=== PATIENT | female | born 2000 | race Caucasian/White ===

== ENCOUNTER 2022-08-14 14:48 | Outpatient (CLI) | payer OTHER, SELFPAY ==
[2022-08-18 14:03] LABS: Kit Draw Collected
== END 2022-08-14 14:49 | disposition home or self-care (01) ==
LOC: ANHGOSHLAB 14:50
PROVIDERS: PCP Internal Medicine; Visit Provider Clinical Nurse Specialist
DX: D64.9 Anemia, unspecified (principal); R53.83 Other fatigue; Z20.828 Contact with and (suspected) exposure to other viral communicable diseases
CPT/HCPCS: 36415

== ENCOUNTER 2024-12-24 19:01 | Emergency (ER) | payer OTHER, SELFPAY ==
--- NOTE | ~2024-12-24 | XR_ITS ---
XR chest 1V portable Ordering provider: Alicia Mcnair MD History: 24 years Female with . sob . Comparison: None. FINDINGS: MEDIASTINUM: The cardiac silhouette is not enlarged. LUNGS: No infiltrates, effusions or pneumothorax. OTHER: No free air under the diaphragm. IMPRESSION: No acute cardiopulmonary pathology. Reviewed, dictated and finalized at location A.
--- OUTSIDE RECORDS SUMMARY | 2024-12-24 19:03 | XMS_ITS | Encounter Summary ---
Author Organization [facility] Healthcare Address [address] [place] [id number] Care Team Providers Care Oracle Application Architect Name Role Phone Dominic Riggs DO Primary Care Provider [phone]- [phone] Reason for Visit * Reason Comments Urinary Symptom Burning and pain dur ing urination, back pain on lower right side, chills, body aches. Symptoms started . Otc advil Encounter Details Date Type Department Care Team (Late st Contact Info) Description 12/24/2024 5:45 PM CDT Office Visit [facility] [place] [address] [place] [id number] Julia Hoffman, BEAU [address] [facility] [place] [address] Pyelonephritis (Primary Dx) Social History Tobacco Use Types Packs/Day Years Used Date Smoking Tobacco: Never Smokeless Tobacco: Never Alcohol Use Standard Drinks/Week Comments Never 0 (1 standard drink = 0.6 oz pur e alcohol) AUDIT-C Answer Date Recorded Q1: How often do you have a drink containing alc ohol? Never 01/16/2020 Average Number of Drinks Not on file 020 Frequency of Binge Drinking Not on file 01/01 Exercise Vital Sign Answer Date Recorde d On average, how many days pe r week do you engage in moderate to strenuous exercise (like a brisk walk)? 0 days 01/16/2020 On average, how many minutes do you engage in exercise at this level? 0 min 01/16/2020 Comments Unknown Sex and Gender Information Value Date Recorded Sex Assigned at Not on file Legal Sex Female 1:[address] Gender Identity Not on file Sexual Orientation Not on file documented as of this encounter Last Filed Vital Signs Vital Sign Reading Time Taken Comments Blood Pressure 100/60 12/24/2024 5:50 PM CDT Pulse 120 12/24/2024 5:50 PM CDT Temperature 38.3 C (100.9 F) 12/24/2024 5:50 PM CDT Respiratory Rate 16 12/24/2024 5:50 PM CDT Oxygen Saturation 98% 12/24/2024 5:50 PM CDT Inhaled Oxygen Concentration - - Weight 59 kg (130 lb) 12/24/2024 5:50 PM CDT Height 154.9 cm (5' 1 ) 12/24/2024 5:50 PM CDT Body Mass Index 24.56 12/24/2024 5:50 PM CDT documented in this encounter Patient Instructions * Patient Instructions* Julia Hoffman NP - 12/24/2024 5:45 PM CDT Go to [facility] documented in this encounter Plan of Treatment Scheduled Orders Name Type Priority Associated Diagnoses Orde r Schedule Urine culture Urine, clean voided Microbiology Routine Pyelonephritis Expected: 12/24/2024, Expires: 12/24/2025 documented as of this encounter Procedures Procedure Name Priority Date/Time Associated Diagnosis Comments POCT HCG, URINE Routine 12/24/2024 6:03 PM CDT Pyelonephritis POCT URINALYSIS DIPSTICK Routine 12/24/2024 5:56 PM CDT Pyelonephritis documented in this encounter Results * POCT hCG, urine (12/24/2024 6:03 PM CDT) HCG, ur, POC Negative Negative Lot Number [id number] QC Backgroud Clear Acceptable QC Control Line Acceptable Urine 12/24/2024 6:03 PM CDT [facility] POINT OF CARE TEST ORDERABLES Fi nal Result * (ABNORMAL) POCT urinalysis dipstick (12/24/2024 5:56 PM CDT) Color, Urine, POC Dark Yellow Clarity, ur, POC Cloudy(A) Clear Glucose, ur, POC Negative Negative Bilirubin, ur, POC Negative Negative Ketones, ur, POC 80.(A) Negative Specific [place], POC 1.020 1.003 - 1.030 Blood, ur, POC Moderate(A) Negative pH, ur, POC 6.5 5.0 - 8.0 Protein, ur, POC 300.(A) Negative Urobilinogen, urine, POC 0.2 0.2 - 1.0 mg/dL Nitrite, ur, POC Positive(A) Negative Leukocytes, ur, POC Small(A) Negative Lot Number [id number] Urine 12/24/2024 5:56 PM CDT [facility] POINT OF CARE TEST ORDERABLES Fi nal Result documented in this encounter Visit Diagnoses Diagnosis Pyelonephritis- Primary Unspecified pyelonephritis documented in this encounter Administered Medications Inactive Administered Medications - up to 3 most recent administrations Medication Order MAR Action Action Date Dose Rate Site acetaminophen (TYLENOL) tablet 975 mg 975 mg (rounded from 1,000 mg), oral, Once, On 12/24/24 at 1845, For 1 doseIndications:Pyelonephritis Given 12/24/2024 6:13 PM CDT 975 mg documented in this encounter Orders Medications Ordered That Good ht Not Have Been Administered Count Last Ordered Date First Ordered Date acetaminophen (TYLENOL) tablet 975 mg 1 documented in this encounter Care Teams Oracle Application Architect Relationship Specialty Start Date End Date Dominic Riggs DO [facility] [address] [place] [address] [place] [id number] PCP - General Internal Medicine 12/24/24 documented as of this encounter
--- OUTSIDE RECORDS SUMMARY | 2024-12-24 19:03 | XMS_ITS | Clinical Summary ---
Author Organization [facility] ospital Address [address] [place] [address] Care Team Providers Care Scale Clerk Name Role Phone Dominic Riggs DO Primary Care Provider [phone]- [phone] Allergies No known active allergies Medications etonogestreL-et hinyl estradioL (NuvaRing) 0.12-0.015 mg/24 hr vaginal ringIndications :Encounter for initial management of nuvaring Insert vaginally and leave in place for 3 consecutive weeks, then remove for 1 week. 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 The bandage contact lenses were removed from each eye. 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 Went over post op week and instructions and expectations for healing. Child to call immediately if worsening pain, clouding, swelling, loss of bandage contact lens or loss of vision. 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 No evidence of infection. 8.4 BCTL exchanged for 8.8. Staining for epi defect with fluorescein did not reveal any staining with 8.[address] Tight fit. Assessment & Plan (12/23/2018 1:55 PM CDT): Child has hyperopic astigmatism of a significant amount. The options were discussed at length and I went through treatment and shelter prognosis regarding her visual system. Encounters Date Type Department Care Team Description 12/24/2024 5:45 PM CDT Office Visit [facility] [place] [address] [place] [id number] Julia Hoffman, BEAU Pyelonephritis (Primary Dx) from Last 3 Months Immunizations Immunization Administration Dates Next Due DTaP 5 Pertussis 10/17/2005, 2,02/25/2001,12/23,2000 HPV, Quadrivalent 09/26/2015, 5,05/18/2014,05/12 Hep A, Pediatric 02/17/2008,10/17/2005 Hep B, Adolescent or Pediatric 05/27/2001,2000,2000 Hib (PRP-T) 02/18/2002, 1,2000,10/20 IPV 10/17/2005, 2,2000,10/20 Influenza, Quadrivalent, Spl it, Preservative Free, Intramuscular 06/12/2017 MMR 10/17/2005,11/19/2001 Meningococcal Conjugate (Menveo) 03/02/2012 Meningococcal MCV4P (Menactra) 04/17/2017 Pneumococcal Conjugate PCV 13 11/19/2001 ,02/25/2001,2000,10/20 Tdap 03/02/2012 Varicella 02/16/2003,08/31/2001 Surgical History Surgery Date Site/Laterality Comments TONSILLECTOMY 06/18/2017 Incision and Drainage Peritonsillar Abscess Medical History Medical History Date Comments Hyperopic astigmatism Corneal degeneration 10/04/2018 Family History Relation Name Status Comments Father Alive Mother Alive Social History Tobacco Use Types Packs/Day Years [...] on file 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 Gender Identity Not on file Sexual Orientation Not on file Obstetrics History Para Term AB IAB SAB Ectopic Multiple Livin g Live Births 1 1 Date Outcome GA Total Labor Labor/2nd/3rd Weight Sex Type Anes PTL Saloni A1 A5 Name Clin 2020 AB 8w0d Last Filed Vital Signs Vital Sign Reading [...] Mass Index 24.56 12/24/2024 5:50 PM CDT Plan of Treatment Health Maintenance Due Date Last Done Comments Cervical Cancer Screening 2000 Depression Screening 2000 Hepatitis C Screening 2000 Regular Well Visit/Exam 18-64 2018 Chlamydia and Gonorrhea (GC/ CT) Screening 01/15/2021 01/16/2020 DTaP/Tdap/Td Vaccine (7 - Td or Tdap) 03/02/2022 03/02/2012, 10/17/2005, 02/18/2002, Additional history exists Influenza Vaccine (Season Ended) 2025 06/12/20 17 Hepatitis B Screening Completed 05/27/2001 , 2000, 2000 Pneumococcal vaccine <65 Completed 002, 02/25/2001, 2000, Additional history exists Varicella Vaccines Completed 02/16/2003, 08/31/2001 HPV Vaccines Completed 09/26/2015, 01/01, 05/18/2014, Additional history exists Procedures Procedure Name Priority Date/Time Associated Diagnosis Comments POCT HCG, URINE Routine 12/24/2024 6:03 PM CDT Pyelonephritis POCT URINALYSIS DIPSTICK Routine 12/24/2024 5:56 PM CDT Pyelonephritis N. GONORRHOEAE/C. TRACHOMATIS AMPLIFICATION TEST Routine 01/16/2020 2:26 PM CDT Screening for STDs (sexually transmitted diseases) from Last 3 Months or Most Recently Relevant to Health Maintenance Results * POCT hCG, urine (12/24/2024 6:03 PM CDT) HCG, ur, POC Negative Negative Lot Number [id number] QC Backgroud Clear Acceptable QC Control Line Acceptable Urine 12/24/2024 6:03 PM CDT Julia Acunaen POINT OF CARE TEST ORDERABLES Fi nal Result * (ABNORMAL) POCT urinalysis dipstick (12/24/2024 5:56 PM CDT) Color, Urine, POC Dark Yellow Clarity, ur, POC Cloudy(A) Clear Glucose, ur, POC Negative Negative Bilirubin, ur, POC Negative Negative Ketones, ur, POC 80.(A) Negative Specific [place], POC 1.020 1.003 - 1.030 Blood, ur, POC Moderate(A) Negative pH, ur, POC 6.5 5.0 - 8.0 Protein, ur, POC 300.(A) Negative Urobilinogen, urine, POC 0.2 0.2 - 1.0 mg/dL Nitrite, ur, POC Positive(A) Negative Leukocytes, ur, POC Small(A) Negative Lot Number [id number] Urine 12/24/2024 5:56 PM CDT Result [facility] Julia Hoffman NP POINT OF CARE TEST ORDERABLES Fi nal Result * N. gonorrhoeae/C. trachomatis amplification test Urine (01/16/2020 2:26 PM CDT) Pathologist [facility] C. trachomatis RNA NOT DETECTED NOT DETECTED [facility] N. gonorrhoeae RNA NOT DETECTED NOT DETECTED [facility] Comment [facility] Comment: The analytical performance characteristics of this assay, when used to test SurePath(TM) specimens have been determined by [employer]. The modifications have not been cleared or approved by the FDA. This assay has been validated pursuant to the CLIA regulations and is used for clinical purposes. For additional information, please refer to https://education.[employer]/faq/DPO747 (This link is being provided for information/ educational purposes only.) Urine 01/16/2020 2:26 PM CDT 01/17/2020 5:18 AM CDT Result [facility] Faith Escamilla TOP [employer]TER LAB MICROBIOLOGY - [facility] RAL ORDERABLES Final Result [facility] [id number] [id number] from Last 3 Months or Most Recently Relevant to Health Maintenance Insurance AET SIGNATURE [facility] AETNA SIGNATURE [facility] CMR Advance Directives For more information, please contact: [phone] Documents on File Type Date Recorded Patient Seat Nailer Expl anation ADVANCE DIRECTIVE 01/18/2019 10:08 AM Care Teams Scale Clerk Relationship Specialty Start Date End Date Dominic Riggs DO [address] [facility] [facility] [place] [address] PCP - General Internal Medicine 12/24/24
--- OUTSIDE RECORDS SUMMARY | 2024-12-24 19:03 | XMS_ITS | Referral Summary ---
Author Organization [facility] ospital Address [address] [place] [address] Care Team Providers Care New Patient Escort Name Role Phone Dominic Riggs DO Primary Care Provider +1- [phone] Encounters Date Type Department Care Team Description 12/24/2024 5:45 PM CDT Office Visit [facility] [place] [address] [place] [address] Julia Hoffman, BEAU Pyelonephritis (Primary Dx) from Last 3 Months Allergies No known active allergies Medications etonogestreL-et [...] (12/29/2018): Added automatically from request for surgery [id number] Assessment & Plan (01/24/2019 12:48 PM CDT): [...] length and I went through treatment and fdc prognosis regarding her visual system. Immunizations Immunization Administration Dates Next Due DTaP 5 Pertussis 10/17/2005, 2,02/25/2001,12/23,2000 HPV, Quadrivalent 09/26/2015, 5,05/18/2014,05/12 Hep A, Pediatric 02/17/2008,10/17/2005 Hep B, Adolescent or Pediatric 05/27/2001,2000,2000 Hib (PRP-T) 02/18/2002, 1,2000,10/20 IPV 10/17/2005, 2,2000,10/20 Influenza, Quadrivalent, Spl it, Preservative Free, Intramuscular 06/12/2017 MMR 10/17/2005,11/19/2001 Meningococcal Conjugate (Menveo) 03/02/2012 Meningococcal MCV4P (Menactra) 04/17/2017 Pneumococcal Conjugate PCV 13 11/19/2001 ,02/25/2001,2000,10/20 Tdap 03/02/2012 Varicella 02/16/2003,08/31/2001 Social History Tobacco Use Types Packs/Day Years [...] on file 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 Gender Identity Not on file Sexual Orientation Not on file Last Filed Vital Signs Vital Sign Reading [...] 12/24/2024 5:50 PM CDT Plan of Treatment Not on file Procedures Procedure Name Priority Date/Time Associated Diagnosis [...] Line Acceptable Urine 12/24/2024 6:03 PM CDT [facility] POINT OF CARE TEST ORDERABLES Fi nal Result * (ABNORMAL) POCT urinalysis dipstick (12/24/2024 5:56 PM CDT) Pathologist [facility] Color, Urine, POC Dark Yellow Clarity, ur, POC Cloudy(A) Clear Glucose, ur, POC Negative Negative Bilirubin, ur, POC Negative Negative Ketones, ur, POC 80.(A) Negative Specific [place], POC 1.020 1.003 - 1.030 Blood, ur, POC Moderate(A) Negative pH, ur, POC 6.5 5.0 - 8.0 Protein, ur, POC 300.(A) Negative Urobilinogen, urine, POC 0.2 0.2 - 1.0 mg/dL Nitrite, ur, POC Positive(A) Negative Leukocytes, ur, POC Small(A) Negative Lot Number [id number] Urine 12/24/2024 5:56 PM CDT Julia [facility] POINT OF CARE TEST ORDERABLES Fi nal Result * N. gonorrhoeae/C. trachomatis amplification test Urine (01/16/2020 2:26 PM CDT) C. trachomatis RNA NOT DETECTED NOT DETECTED [facility] N. gonorrhoeae RNA NOT DETECTED NOT DETECTED [facility] Comment [facility] Comment: The analytical performance characteristics of this assay, when used to test SurePath(TM) specimens have been determined by [employer]. The modifications have not been cleared or approved by the FDA. This assay has been validated pursuant to the CLIA regulations and is used for clinical purposes. For additional information, please refer to https://education.[employer]/faq/KFL668 (This link is being provided for information/ educational purposes only.) Urine 01/16/2020 2:26 PM CDT 01/17/2020 5:18 AM CDT Faith Escamilla NP LAB MICROBIOLOGY - [facility] ORDERABLES Final Result [facility] [id number] [facility] [place] [address] from Last 3 Months or Most Recently Relevant to Health Maintenance Insurance AETNA SIGNATURE AETNA SIGNATURE Advance Directives For more information, please contact: [phone] Documents on File Type Date Recorded Patient Clinic Office Coordinator Expl anation ADVANCE DIRECTIVE 01/18/2019 10:08 AM Care Teams New Patient Escort Relationship Specialty Start Date End Date Dominic Riggs DO [address] [facility] [address] [address] PCP - General Internal Medicine 12/24/24
[2024-12-24 19:06] VITALS: BP 101/70; PULSE 133; RESP 18; TEMP 37.3; O2SAT 100
--- NOTE | 2024-12-24 21:03 | ECG_ITS ---
Test Date: 2024-12-24 21:35:08 Measurements Intervals [place] Rate: 111 P: 42 [place]: 127 QRS: 55 QRSD: 82 T: 47 QT: 322 QTc: 439 Interpretive Statements SINUS TACHYCARDIA ABNORMAL RHYTHM ECG No previous ECG available for comparison Electronically Signed On 12-25-2024 10:08:52 CDT by Celestino Deshpande M.D.
--- NOTE | 2024-12-24 21:03 | ED_ITS ---
HPI - Recheck/Abnormal Lab/Rx General Chief Complaint: Recheck/Abnormal Lab/Rx Stated Complaint: kidney infection Time Seen by Provider: 12/24/24 20:52 Source: patient and other (Boyfriend) Mode of arrival: ambulatory Limitations: no limitations History of Present Illness HPI narrative: Patient presents with low back/right flank pain beginning since . She presented to [facility] urgent care today and was advised to present to the emergency department for possible pyelonephritis. THey reportedly took a sample of urine but unclear result and none listed in discharge instructions. She denies any history of urinary tract infection or pyelonephritis. She has had dysuria, urgency and frequency. She does not know if she has had hematuria. Her last menstrual period started this week and is typically 4-5 days but has been next 7 days at this point. She has felt nauseated but not vomiting. She has had subjective fevers as well as close sweats. No history of kidney stones although her mother and brother have had them. She states she was at her brother's graduation democrat today and progressively felt worse developing a headache and feeling off balance with brain fog. She feels like her breathing has been have urine quicker. No abdominal pain. No previous abdominal surgeries. She is not on control. Her last bowel movement was today and she states it is scant but attributes that to decreased p.o. intake due to no appetite. No blood in bowel movement. No lower extremity edema. Has not been coughing but no hemoptysis. Related Data Allergies Allergy/AdvReac Type Severity Reaction Status Date / Time No Known Allergies Allergy Unknown Verified 08/14/22 14:14 [facility] Surgical History Surgical History of [facility] 2019 History of tonsillectomy 2018 Family History Family History Grandparent Breast cancer paternal and maternal grandmother Diabetes mellitus maternal grandfather Mother Kidney stone Sibling Kidney stone Social History Social History Smoking status: Never smoker Alcohol intake: current Drinks per week: 1 Substance use: current Substance use type: marijuana Lack of Transportation: No Lack of Food: Never True Current Housing: I Have Housing Concerned About Future Housing: No Difficulty Paying Gas/Electric Bills: No Difficulty Paying for Meds: No Currently Unemployed: No Education: High School Diploma/GED Difficulty w/ Childcare or Family Care: No Living arrangements: other Additional living arrangements comments: single Occupation/Education: occupation 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 HEAD: Normocephalic, atraumatic. EYES: Non injected, non icteric ENT: Nares clear, no rhinorrhea or epistaxis. Gross auditory acuity intact. Generally moist although borderline tacky mucous membranes. NECK: Supple. No meningismus. CHEST: Speaking in full sentences. No respiratory distress. HEART:Tachycardic rate and rhythm at left radial pulse. . ABDOMEN: Soft, nondistended. No rigidity or guarding. Not peritoneal BACK/: R CVA tenderness, no L CVA tenderness. EXTREMITIES: Normal range of motion. No lower extremity edema. SKIN: Warm, dry, no rash. NEURO: No focal deficits. Alert and oriented. Answering questions. Following commands. Normal speech without aphasia or dysarthria. PSYCH: Normal mood and affect. Course Vital Signs Vital signs: Vital Signs Temperature 99.1 F 12/24/24 19:06 Pulse Rate 133 H 12/24/24 19:06 Respiratory Rate 18 12/24/24 19:06 Blood Pressure 101/70 12/24/24 19:06 Pulse Oximetry 100 12/24/24 19:06 Oxygen Delivery Room Air 12/24/24 19:06 Temperature 99.1 F 12/24/24 19:06 Pulse Rate 117 H 12/25/24 01:37 Respiratory Rate 20 12/25/24 01:37 Blood Pressure 108/64 12/25/24 01:37 Pulse Oximetry 100 12/25/24 01:37 Oxygen Delivery Room Air 12/24/24 19:06 MDM - Recheck/Abnormal Lab/Rx MDM Narrative Medical decision making narrative: Patient presents with concern for kidney infection. She was sent from a local urgent care for this. In the emergency department she is afebrile vital signs notable for significant tachycardia. 1 L fluid bolus ordered as is an EKG. She has a leukocytosis. Urinalysis does look markedly infected. Because there are moderate squamous cells, it was not automatically reflex to culture. I did order this lab and call the costume technician to process it. Patient has a previous urine culture from 2021 but it showed no growth. Will give 1 time dose of ceftriaxone. Hyperbilirubinemia; direct and indirect ordered. Ddx indirect hyperbilirubinemia (which is predominant) Over production of bilirubin (hemolytic anemia), reduced uptake (cirrhosis or congestive hepatopathy), impaired conjugation, biliary obstruction, hereditary disease (Gilbert syndrome, Maged-Jayson syndrome, Crigler-Ervin syndrome), medication side effect (allopurinol, anabolic steroids, antibiotics, antimalarials, etc.). She otherwise does not appear jaundiced. test negative. Patient's tachycardia is improving after IV fluids however still elevated. Will obtain D-dimer as well as TSH, the former because she had endorsed this of breath/heaviness with breathing. Dimer mildly elevated. However, YEARS Algorithm : No Clinical signs of DVT: No Hemoptysis: No PE is most likely diagnosis: No D-dimer >1000ng/mL: No Result: PE Excluded. Will not pursue this further Thyroid normal. Patient's heart rate does not normalize. At times her heart rate has improved to the low 110s. This might be due to body habitus but also likely infection is contributing. However, she reports feeling much better and is nontoxic appearing. Otherwise stable for and ready for discharge and this is reasonable. Has tolerated PO. Had discussed the importance of taking the entire course of her antibiotics. She had been given for DM and was discharged with the same. Also prescribed medications for symptom management including [id number] prescriptions for analgesics and ondansetron for nausea vomiting. Given strict emergency department return precautions. Differential Diagnosis Differential diagnosis: Likely other (UTI/pyelonephritis, constipation, kidney stone; musculoskeletal) Lab Data Attestation: I reviewed the patient's lab results. 12/24/24 21:41 12/24/24 21:41 Labs: Lab Results 12/24/24 12/24/24 Range/Units 21:41 22:09 WBC 13.4 H (4.5-10.0) K/mm3 RBC 4.47 (4.2-5.4) M/mm3 Hgb 13.8 (12.0-15.0) g/dL Hct 41.9 (37.0-47.0) % MCV 93.7 (80-100) fl MCH 30.9 (26-34) pg MCHC 32.9 (32-36) g/dl RDW 12.0 (11.5-14.5) % Plt Count 183 (150-375) k/mm3 MPV 10.7 H (7.4-10.4) fl Immature Gran % (Auto) 0.4 (0-0.5) % Neut % (Auto) 83.8 H (45.5-73.1) % Lymph % (Auto) 7.7 L (18.3-44.2) % [place] % (Auto) 7.8 (2.6-8.5) % Eos % (Auto) 0.1 (0-4.4) % Baso % (Auto) 0.2 (0.2-1.2) % Lymph # (Auto) 1.03 (0.9-3.2) K/mm3 [place] # (Auto) 1.1 H (0.1-0.6) K/mm3 Eos # (Auto) 0.0 (0-0.3) K/mm3 Baso # (Auto) 0.0 (0.0-0.1) K/mm3 Abs Immat Gran (auto) 0.05 H (0.00-0.031) K/mm3 Absolute Neuts (auto) 11.2 H (1.3-6.7) K/mm3 Absolute Nucleated RBC 0.000 (0.0-0.012) K/mm3 Nucleated RBC % 0.0 (0.0-0.2) % D-Dimer 0.88 H (<0.48) ug/mL Sodium 138 (137-145) mmol/L Potassium 3.7 (3.4-5.0) mmol/L Chloride 104 (98-107) mmol/L Carbon Dioxide 20 L (22-30) mmol/L Anion Gap 14 H (4-12) mmol/L BUN 14 (7-17) mg/dL Creatinine 0.85 (0.7-1.0) mg/dL Estim Creat Clear Calc 67 ml/min Estimated GFR > 60 (59 - ) Glucose 80 (65-110) mg/dL Calcium 9.6 (8.4-10.2) mg/dL Total Bilirubin 2.4 H (0.2-1.3) mg/dL Direct Bilirubin 0.0 (0-0.3) mg/dL Indirect Bilirubin 2.2 H (0-1.1) mg/dL AST 26 (14-36) U/L ALT 15 (6-35) U/L Alkaline Phosphatase 81 (38-126) U/L Total Protein 9.0 H (6.3-8.2) g/dL Albumin 4.9 (3.5-5.1) g/dL TSH 0.652 (0.465-4.680) uIU/mL Urine Color Yellow (Yellow) Urine Appearance Cloudy H (Clear) Urine pH 6.0 (5.0-9.0) Ur Specific [place] 1.020 (1.001-1.035) Urine Protein 2+ H (Negative) mg/dL Urine Glucose (UA) Negative (Negative) mg/dL Urine Ketones 4+ H (Negative) mg/dL Ur Blood (Man) 2+ H (Negative) Urine Nitrate Positive H (Negative) Urine Bilirubin Negative (Negative) Urine Urobilinogen 1.0 (<2.0) mg/dL Add Ur Microanalysis Reviewed Leukocyte Esterase Rfl 3+ H (Negative) CHEPE/UL Urine RBC 6-10 H (0-2) /hpf Urine WBC >100 H (0-3) /hpf Ur Squamous Epith Cells Moderate (Few) /hpf Urine Bacteria 4+ H /hpf Urine Casts 3-5 POC Urine HCG, Qual Negative (Negative) Imaging Data Radiologist's impression: Impressions Chest X-Ray 12/24/24 22:10 IMPRESSION: No acute cardiopulmonary pathology. ECG Data EKG #1: Attestation: I personally reviewed and interpreted this ECG as follows: ECG completion date: 12/24/24 ECG completion time: 21:35 Interpretation: Sinus tachycardia at a rate of 101 beats per minute. NM interval 127. QRS 82. QT/QTC 322/388. Good R-wave progression across the precordial leads. No T-wave inversion. Normal axis. Discharge Plan Discharge Clinical Impression: Dysuria, Right flank pain, Leukocytosis, Pyelonephritis of right kidney Patient Disposition: Home Condition: Stable Instructions: Antibiotic Form, Kidney Infection (ED), Leukocytosis (ED), Dysuria (ED), Flank Pain (ED) Additional Instructions: You have a urinary tract infection that appears to ascended to your kidney and this is known as a kidney infection/pyelonephritis. You received your 1st dose of antibiotic as IV in the emergency department with the rest of the course prescribed. Take the entire course. Pyridium/phenazopyridine can help with the pain you are experiencing from a urinary tract infection. It can discolor your urine and tears (turn them orange). Do not wear contact lenses while taking this medication. Acetaminophen/Tylenol (maximum 4000 mg per day) is safe to take with NSAIDs (ibuprofen/Motrin) for pain relief. You can use the oral disintegrating tablets of Zofran/ondansetron for nausea and vomiting. Follow-up with primary care physician. There is lower suspicion for a kidney stone however this or other causes of symptoms are also possible so do not hesitate to return to the emergency department with any new, worsening, unmanaged symptoms such as intractable nausea/vomiting, concern for dehydration, passing out/nearly fainting, fever greater than 100.4? F, intractable pain, etc. Patient Language: Occitan Prescriptions: New phenazopyridine [Pyridium] 100 mg tablet 100 mg PO TID PRN (Reason: pain) Qty: 5 0RF cephalexin 500 mg capsule 500 mg PO Q8H 12 Days Qty: 36 0RF acetaminophen 500 mg capsule 1,000 mg PO Q6H PRN (Reason: pain) Qty: 30 0RF ibuprofen 600 mg tablet 600 mg PO TID PRN (Reason: pain) Qty: 30 0RF ondansetron 4 mg tablet,disintegrating 4 mg PO Q8H PRN (Reason: nausea and vomiting) Qty: 7 0RF Follow-up/Referrals: Dominic Riggs DO [Primary Care Provider] - Stand Alone Forms: Work/School Release IP Time of Disposition: 01:31
--- OUTSIDE RECORDS SUMMARY | 2024-12-24 21:07 | XMS_ITS | Encounter Summary ---
Author Organization [facility] Healthcare Address [address] [place] [address] Care Team Providers Care Director Of Product Marketing Name Role Phone Dominic Riggs DO Primary Care Provider [phone]- [phone] Reason for Visit * Reason Comments Urinary Symptom Burning and pain dur ing urination, back pain on lower right side, chills, body aches. Symptoms started . 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 Gender Identity Not on file Sexual Orientation [...] - 12/24/2024 5:45 PM CDT Go to [facility] documented in this encounter Plan [...] Line Acceptable Urine 12/24/2024 6:03 PM CDT [facility] POINT OF CARE TEST ORDERABLES Fi nal Result * (ABNORMAL) POCT urinalysis dipstick (12/24/2024 5:56 PM CDT) Color, Urine, POC Dark Yellow Clarity, ur, POC Cloudy(A) Clear Glucose, ur, POC Negative Negative Bilirubin, ur, POC Negative Negative Ketones, ur, POC 80.(A) Negative Specific [place], POC 1.020 1.003 - 1.030 Blood, ur, POC Moderate(A) Negative pH, ur, POC 6.5 5.0 - 8.0 Protein, ur, POC 300.(A) Negative Urobilinogen, urine, POC 0.2 0.2 - 1.0 mg/dL Nitrite, ur, POC Positive(A) Negative Leukocytes, ur, POC Small(A) Negative Lot Number [id number] Urine 12/24/2024 5:56 PM CDT [facility] POINT OF CARE TEST ORDERABLES Fi [...] 1 documented in this encounter Care Teams Director Of Product Marketing Relationship Specialty Start Date End Date Dominic Riggs DO [facility] [facility] [address] [place] [address] [place] [id number] PCP - General Internal Medicine 12/24/24 documented as of this encounter
--- OUTSIDE RECORDS SUMMARY | 2024-12-24 21:07 | XMS_ITS | Clinical Summary ---
Author Organization [facility] Address [address] [place] [address] Care Team Providers Care Shell Sieve Operator Name Role Phone Dominic Riggs DO Primary Care Provider [phone]- [phone] Allergies No known active allergies Medications etonogestreL-et [...] (12/29/2018): Added automatically from request for surgery [id number] Assessment & Plan (01/24/2019 12:48 PM CDT): [...] length and I went through treatment and senior living prognosis regarding her visual system. 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 gonorrhoeae/C. trachomatis amplification test Urine (01/16/2020 2:26 PM CDT) Pathologist [facility] C. trachomatis RNA NOT DETECTED NOT DETECTED [facility] N. gonorrhoeae RNA NOT DETECTED NOT DETECTED [facility] Comment [facility] Comment: The analytical performance characteristics of this assay, when used to test SurePath(TM) specimens have been determined by [employer]. The modifications have not been cleared or approved by the FDA. This assay has been validated pursuant to the CLIA regulations and is used for clinical purposes. For additional information, please refer to https://education.[employer]mp[employer] Mobile/faq/RNS212 (This link is being provided for information/ educational purposes only.) Urine 01/16/2020 2:26 PM CDT 01/17/2020 5:18 AM CDT Result [facility] Faith Escamilla SUBSTATION MAINTENANCE TECHNICIAN LAB MICROBIOLOGY - G[facility] RAL ORDERABLES Final Result [facility] [id number] [address] [id number] from Last 3 Months or Most Recently Relevant to Health Maintenance Insurance AET SIGNATURE [facility] AETNA SIGNATURE [facility] CMR Advance Directives For more information, please contact: [phone] Documents on File Type Date Recorded Patient Elevated Guard Expl anation ADVANCE DIRECTIVE 01/18/2019 10:08 AM Care Teams Shell Sieve Operator Relationship Specialty Start Date End Date Dominic Riggs DO [address] [place] [address] PCP - General Internal Medicine 12/24/24
--- OUTSIDE RECORDS SUMMARY | 2024-12-24 21:07 | XMS_ITS | Referral Summary ---
Author Organization [facility] Address [address] [place] [address] Care Team Providers Care Ocean Lifeguard Specialist Name Role Phone Dominic Riggs DO Primary Care Provider [phone]- [phone] Encounters Date Type Department Care Team Description 12/24/2024 5:45 PM CDT Office Visit [facility] [place] [address] [place] [address] Julia Hoffman, BEAU Pyelonephritis (Primary [...] (12/29/2018): Added automatically from request for surgery [id number] Assessment & Plan (01/24/2019 12:48 PM CDT): [...] length and I went through treatment and alf prognosis regarding her visual system. 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 Gender Identity Not on file Sexual Orientation [...] Line Acceptable Urine 12/24/2024 6:03 PM CDT [facility] POINT OF CARE TEST ORDERABLES Fi nal Result * (ABNORMAL) POCT urinalysis dipstick (12/24/2024 5:56 PM CDT) Pathologist [facility] Color, Urine, POC Dark Yellow Clarity, ur, POC Cloudy(A) Clear Glucose, ur, POC Negative Negative Bilirubin, ur, POC Negative Negative Ketones, ur, POC 80.(A) Negative Specific [place], POC 1.020 1.003 - 1.030 Blood, ur, POC Moderate(A) Negative pH, ur, POC 6.5 5.0 - 8.0 Protein, ur, POC 300.(A) Negative Urobilinogen, urine, POC 0.2 0.2 - 1.0 mg/dL Nitrite, ur, POC Positive(A) Negative Leukocytes, ur, POC Small(A) Negative Lot Number [id number] Urine 12/24/2024 5:56 PM CDT Julia [facility] POINT OF CARE TEST ORDERABLES Fi nal Result * N. gonorrhoeae/C. trachomatis amplification test Urine (01/16/2020 2:26 PM CDT) C. trachomatis RNA NOT DETECTED NOT DETECTED [facility] N. gonorrhoeae RNA NOT DETECTED NOT DETECTED [facility] Comment [facility] Comment: The analytical performance characteristics of this assay, when used to test SurePath(TM) specimens have been determined by [employer]. The modifications have not been cleared or approved by the FDA. This assay has been validated pursuant to the CLIA regulations and is used for clinical purposes. For additional information, please refer to https://education.[employer]./faq/EON788 (This link is being provided for information/ educational purposes only.) Urine 01/16/2020 2:26 PM CDT 01/17/2020 5:18 AM CDT Faith Escamilla NP LAB MICROBIOLOGY - [facility] ORDERABLES Final Result [facility] [address] [facility] [place] [address] from Last 3 Months or Most Recently Relevant to Health Maintenance Insurance AETNA SIGNATURE AETNA SIGNATURE Advance Directives For more information, please contact: [phone] Documents on File Type Date Recorded Patient Floatlight Powder Mixer Expl anation ADVANCE DIRECTIVE 01/18/2019 10:08 AM Care Teams Ocean Lifeguard Specialist Relationship Specialty Start Date End Date Dominic Riggs DO [address] [facility] [address] [address] PCP - General Internal Medicine 12/24/24
[2024-12-24 21:48] LABS: Basophils Percent Auto 0.2 % (0.2-1.2); Eosinophils Percent Auto 0.1 % (0-4.4); Hematocrit 41.9 % (37.0-47.0); Hemoglobin 13.8 g/dL (12.0-15.0); Immature Granulocyte Absolute 0.05 K/mm3 (0.00-0.031); Immature Granulocyte Percent A 0.4 % (0-0.5); Lymphocytes Absolute Auto 1.03 K/mm3 (0.9-3.2); Lymphocytes Percent Auto 7.7 % (18.3-44.2); Mean Corpuscular HGB Conc 32.9 g/dl (32-36); Mean Corpuscular Hemoglobin 30.9 pg (26-34); Mean Corpuscular Volume 93.7 fl (80-100); Mean Platelet Volume 10.7 fl (7.4-10.4); Monocytes Absolute Auto 1.1 K/mm3 (0.1-0.6); Monocytes Percent Auto 7.8 % (2.6-8.5); Neutrophils Absolute Auto 11.2 K/mm3 (1.3-6.7); Neutrophils Percent Auto 83.8 % (45.5-73.1); Platelet Count Result 183 k/mm3 (150-375); Red Blood Count 4.47 M/mm3 (4.2-5.4); White Blood Count 13.4 K/mm3 (4.5-10.0)
[2024-12-24 22:00] LABS: Add Urine Microscopic? YES; Appearance Urine Cloudy (Clear); Bacteria Urine 4+ /hpf; Bilirubin Urine Negative (Negative); Blood Urine 2+ (Negative); Color Urine Yellow (Yellow); Glucose Urine UA Negative (Negative); Ketones Urine 4+ mg/dL (Negative); Leukocyte Esterase Ur 3+ LEU/UL (Negative); Need Manual Microscopic Reviewed; Nitrate Urine Positive (Negative); Protein Urine 2+ mg/dL (Negative); Squamous Epithelial Cell Urine Moderate /hpf (Few); WBC Urine >100 /hpf (0-3)
[2024-12-24 22:04] LABS: Alanine Aminotransferase 15 U/L (6-35); Albumin Level 4.9 g/dL (3.5-5.1); Alkaline Phosphatase 81 U/L (38-126); Anion Gap 14 mmol/L (4-12); Aspartate Amino Transferase 26 U/L (14-36); Bilirubin,Total 2.4 mg/dL (0.2-1.3); Blood Urea Nitrogen 14 mg/dL (7-17); Calcium 9.6 mg/dL (8.4-10.2); Carbon Dioxide 20 mmol/L (22-30); Chloride 104 mmol/L (98-107); Estimated CRCL calculation 67 ml/min; Estimated Glomerular Filt Rate > 60; Glucose 80 mg/dL (65-110); Potassium 3.7 mmol/L (3.4-5.0); Sodium 138 mmol/L (137-145)
[2024-12-24 22:11] LABS: BEDSIDEPREGUCG Negative (Negative)
[2024-12-24 22:22] LABS: Bilirubin Indirect 2.2 mg/dL (0-1.1)
[2024-12-24] MEDS: SODIUM CHLORIDE 0.9% IV 1,000 ML 999 ML IV CONT (22:22)
[2024-12-24] MEDS: ONDANSETRON INJ 4 MG/2 ML VIAL IV PUSH (22:23)
[2024-12-24] MEDS: ACETAMINOPHEN 500 MG TABLET 1000 MG PO (22:35)
[2024-12-24] MEDS: MORPHINE SULFATE (*CRX) 2 MG/ML INJ IV PUSH (22:36)
--- NOTE | 2024-12-24 23:14 | PC.NURSE ---
Report received from KYM Dhaliwal. Assumed care of patient at this time.
[2024-12-24 23:48] VITALS: BP 105/69; PULSE 117; RESP 18; O2SAT 100
[2024-12-25 00:29] LABS: D Dimer 0.88 ug/mL (<0.48)
[2024-12-25] MEDS: SODIUM CHLORIDE 0.9% IV 1,000 ML 999 ML IV CONT (00:52)
[2024-12-25 01:07] LABS: Thyroid Stimulating Hormone 0.652 uIU/mL (0.465-4.680)
[2024-12-25] MEDS: PHENAZOPYRIDINE HCL 100 MG TABLET PO (01:36)
[2024-12-25 01:37] VITALS: BP 108/64; PULSE 117; RESP 20; O2SAT 100
== END 2024-12-25 01:45 | disposition home or self-care (01) ==
PROVIDERS: Emergency Provider Student in an Organized Health Care Education/Training Program; PCP Internal Medicine
DX: N12 Tubulo-interstitial nephritis, not specified as acute or chronic (principal)
CPT/HCPCS: 36415; 71045; 80053; 81001; 81025; 82248; 84443; 85025; 85380; 87077; 87086; 87186; 93005; 96361; 96365; 96375; 99284; A9270; J0696; J2270; J2405; J7030